=== PATIENT | female | born 1995 | race Caucasian/White ===

== ENCOUNTER → 2020-08-14 | Outpatient (CLI) | payer OTHER ==
[~2020-08-14] MED LIST: ASPIRIN CHEWABL81 MG PO; MACROBID 100 M100 MG PO
== END ==
LOC: CT 08-09 13:00
DX: I72.5 Aneurysm of other precerebral arteries (principal); J34.89 Other specified disorders of nose and nasal sinuses
CPT/HCPCS: 36415; 70496; 70498; 82565; Q9967

== ENCOUNTER → 2021-10-29 | Day surgery (SDC) | payer OTHER ==
[~2021-10-29] MED LIST changes: +BACTRIM 400-801 EACH PO; +NORVASC10 MG PO; +PEPCID20 MG PO
== END | disposition home or self-care (01) ==
LOC: OR 08:07
DX: K29.50 Unspecified chronic gastritis without bleeding (principal); K21.00 Gastro-esophageal reflux disease with esophagitis, without bleeding; K59.04 Chronic idiopathic constipation; I10 Essential (primary) hypertension; E66.3 Overweight; F17.200 Nicotine dependence, unspecified, uncomplicated; Z68.25 Body mass index [BMI] 25.0-25.9, adult; Z88.1 Allergy status to other antibiotic agents; Z72.89 Other problems related to lifestyle; Z79.899 Other long term (current) drug therapy
CPT/HCPCS: 84703; J2250; J2704; J3010; J7040

== ENCOUNTER → 2022-03-11 | Emergency (ER) | payer OTHER | END | disposition left against medical advice (07) | LOC: ER1 08:03 | DX: Z53.21 Procedure and treatment not carried out due to patient leaving prior to being seen by health care provider (principal) ==

== ENCOUNTER → 2022-04-15 | Outpatient (CLI) | payer OTHER ==
[~2022-04-15] MED LIST changes: +FEROSUL325 MG PO; +IBU800 MG PO; +VALIUM 10 MG TA10 MG VG; +ZYRTEC10 M3 PO
[2022-04-15 09:22] LABS: HEMOGLOBIN 14.3 gm/dl (12.3-15.3); RED BLOOD COUNT 4.46 M/UL (4.00-5.10); WHITE BLOOD COUNT 6.9 K/UL (4.5-11.0)
[2022-04-15 09:42] LABS: BUN/CREATININE RATIO 17 (0-10)
== END ==
LOC: OPSV2 08:00
PROVIDERS: Obstetrics & Gynecology
DX: Z01.812 Encounter for preprocedural laboratory examination (principal); N93.9 Abnormal uterine and vaginal bleeding, unspecified
CPT/HCPCS: 80053; 81001; 85025

== ENCOUNTER → 2022-04-23 | Day surgery (SDC) | payer OTHER ==
[~2022-04-23] VITALS: Ht 167.6 cm; Wt 68.9 kg
[~2022-04-23] MED LIST changes: +HYDROCODONE-AC1 EACH PO; +IBUPROFEN600 MG PO; +ZOFRAN 4 MG TAB4 MG PO
== END | disposition home or self-care (01) ==
LOC: OR 07:08
DX: N93.9 Abnormal uterine and vaginal bleeding, unspecified (principal); D64.9 Anemia, unspecified; N94.89 Other specified conditions associated with female genital organs and menstrual cycle; Z87.42 Personal history of other diseases of the female genital tract; Z88.1 Allergy status to other antibiotic agents; Z79.899 Other long term (current) drug therapy
CPT/HCPCS: 84703; J1100; J1885; J2001; J2250; J2405; J2704; J3010